=== PATIENT | female | born 1980 | race African-American/Black ===

== ENCOUNTER 2017-05-16 21:14 | Emergency (ER) | payer OTHER ==
[2017-05-16] MEDS ORDERED: ALPRAZolam 0.25 MG TABLET PO ONE (21:20)
[2017-05-16 21:32] VITALS: BP 149/98; PULSE 99; TEMP 97.9; BMI 24.7
[2017-05-16] MEDS ORDERED: ALPRAZolam 0.25 MG TABLET ONE (21:33)
[2017-05-16 21:37] LABS: MCH 23.2 pg (25.7-33.7); MCHC 31.9 g/dl (32.0-36.0); MEAN CELL VOLUME 72.8 fl (80-96); MEAN PLT VOLUME 7.9 fl (7.5-11.1); PLATELET COUNT 303 K/MM3 (134-434); RDW 15.8 % (11.6-15.6); WHITE BLOOD COUNT 8.5 K/mm3 (4.0-10.0)
--- NOTE | 2017-05-16 21:38 | PDOC ---
History of Present Illness - General Stated Complaint: INSOMIA Time Seen by Provider: 05/16/17 21:29 History Source: Patient Exam Limitations: No Limitations - History of Present Illness Initial Comments: 05/16/17 21:59 36 yr female no past medical history presents with 2-3 days of unable to sleep causing anxious feelings. Pt denies any chest pain or shortness of breath. no recent stressfull events. Pt denies suicidal thoughts. 05/18/17 12:53 Past History - Past Medical History Allergies/Adverse Reactions: Allergies Allergy/AdvReac Type Severity Reaction Status Date / Time sulfamethoxazole Allergy Verified 05/16/17 21:32 [From Bactrim] trimethoprim [From Bactrim] Allergy Verified 05/16/17 21:32 Home Medications: Ambulatory Orders Alprazolam [Xanax] 0.25 mg PO Q8H PRN #21 tablet MDD 2MG 05/16/17 Psychiatric Problems: (Anxiety) Other medical history: Migraines, fibroids - Psycho/Social/Smoking Cessation Hx Suicidal Ideation: No Smoking History: Never smoked Information on smoking cessation initiated: No Hx Alcohol Use: No Drug/Substance Use Hx: No Substance Use Type: None Review of Systems - Review of Systems Able to Perform ROS?: Yes Is the patient limited Bahamian proficient: No Constitutional: No: Symptoms Reported HEENTM: No: Symptoms Reported Respiratory: No: Symptoms reported Cardiac (ROS): No: Symptoms Reported ABD/GI: No: Symptoms Reported : No: Symptoms Reported Musculoskeletal: No: Symptoms Reported Integumentary: No: Symptoms Reported Neurological: No: Symptoms reported Psychiatric: Yes: Anxiety, Sleep Pattern Change. No: Depression, Frequent Crying Endocrine: No: Symptoms Reported *Physical Exam - Vital Signs Last Vital Signs Temp Pulse Resp BP Pulse Ox 97.9 F 99 H 20 149/98 100 05/16/17 21:24 05/16/17 21:24 05/16/17 21:24 05/16/17 21:24 05/16/17 21:24 - Physical Exam General Appearance: Yes: Nourished, Appropriately Dressed HEENT: positive: EOMI, JUAN Respiratory/Chest: positive: Lungs Clear, Normal Breath Sounds Cardiovascular: positive: Regular Rhythm, Regular Rate, Tachycardia (mild) Integumentary: positive: Normal Color, Dry, Warm Neurologic: positive: Fully Oriented, Alert, Normal Mood/Affect, Normal Response , Motor Strength 02/11 ED Treatment Course - LABORATORY CBC & Chemistry Diagram: 05/16/17 21:30 05/16/17 21:30 Medical Decision Making - Medical Decision Making 05/16/17 22:16 cc: feeling anxious unable to sleep no cp no sob will give xanax now and re-evaluate pt requesting baseline lab work, will check , TSH, free t3, pt with her boyfriend who is driving her home pt reports feeling better after xanax on discharge labs reviewed with pt on discharge. pt understands the follow up plan of care. all questions asked and answered at discharge. 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
[2017-05-16 22:00] LABS: ALBUMIN 3.9 g/dl (3.4-5.0); ANION GAP 7 (8-16); BILIRUBIN,TOTAL 0.3 mg/dL (0.2-1.0); CALCIUM 9.1 mg/dL (8.5-10.1); CO2 25 mmol/L (21-32); CREATININE 0.8 mg/dL (0.55-1.02); GLUCOSE,RANDOM 100 mg/dL (74-106); SGOT/AST 20 U/L (15-37); SGPT/ALT 32 U/L (12-78); TOT PROT 7.8 g/dl (6.4-8.2)
[2017-05-16 22:09] LABS: ALK PHOS 54 U/L (45-117); THYROID STIMULATING HORMONE 2.55 uIU/ml (0.358-3.74)
== END 2017-05-16 22:19 | disposition home or self-care (01) ==
LOC: JERFT 21:14
DX: F51.01 Primary insomnia (principal); Z88.1 Allergy status to other antibiotic agents; Z88.2 Allergy status to sulfonamides
CPT/HCPCS: 36415; 80053; 84443; 84481; 84703; 85027; 99281-25

== ENCOUNTER 2020-05-07 13:37 | Emergency (ER) | payer OTHER ==
--- NOTE | 2020-05-07 13:44 | TELE ---
HPI Do you have fever,cough or shortness of breath?: No - General Reason For Visit: COVID History Source: Patient Past History - Travel History Traveled outside of the country in the last 30 days: No Close contact w/someone who was outside of country & ill: No - Medical History Allergies/Adverse Reactions: Allergies Allergy/AdvReac Type Severity Reaction Status Date / Time sulfamethoxazole Allergy Verified 05/16/17 21:32 [From Bactrim] trimethoprim [From Bactrim] Allergy Verified 05/16/17 21:32 Home Medications: Ambulatory Orders Alprazolam [Xanax] 0.25 mg PO Q8H PRN #21 tablet MDD 2MG 05/16/17 Triazolam 0.25 mg PO HS PRN #10 tablet MDD 1 06/01/17 Zolpidem Tartrate [Ambien Cr] 12.5 mg PO DAILY #30 tab.mphase MDD 1 07/29/17 Hydrocodone/Ibuprofen [VICOPROFEN 7.5/200 mg [NF MEDICATION]] 1 tab PO TID #5 tablet MDD 3 08/24/17 Hydrocodone/Ibuprofen [VICOPROFEN 7.5/200 mg [NF MEDICATION]] 1 tab PO TID PRN #30 tablet MDD 6 09/09/19 Psychiatric Problems: (Anxiety) - Psycho-Social/Smoking History Smoking History: Never smoked Review of Systems - Review of Systems Able to Perform ROS?: Yes Limited Kinyarwanda proficient: No Constitutional: No: Chills, Fever, Weakness HEENTM: No: Throat Pain Respiratory: No: Cough, Wheezing ABD/GI: No: Diarrhea, Nausea, Vomiting Neurological: No: Headache All Other Systems: Reviewed and Negative *Physical Exam - Physical Exam General Appearance: Yes: Nourished, Appropriately Dressed. No: Apparent Distress HEENT: positive: EOMI, JUAN Neck: positive: Trachea midline Respiratory/Chest: positive: Other (speaking in full sentences). negative: Respiratory Distress - Medical Decision Making 05/07/20 14:21 Pt with no PMH presents to [facility] for a COVID swab. 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 Pt has no symptoms. A/P: need for covid testing COVID order placed Pt swabbed and sent to lab Isolation precautions given. Discharge Diagnosis at time of Disposition: Counseled about COVID-19 virus infection - Referrals - Patient Instructions Discharge Instructions: [facility]-Coronavirus Instructions, [facility] COVID-19 Isolation Protocol
== END 2020-05-07 14:25 | disposition home or self-care (01) ==
LOC: JVIRT 13:37
DX: Z11.59 Encounter for screening for other viral diseases (principal)
CPT/HCPCS: Q3014-GT; U0003

== ENCOUNTER 2021-01-14 12:06 | Emergency (ER) | payer OTHER ==
[2021-01-15 10:09] LABS: SARS-CoV-2 NAA Not Detected (Not Detected)
== END 2021-01-14 12:11 | disposition home or self-care (01) ==
LOC: JVIRT 12:06
DX: Z20.822 Contact with and (suspected) exposure to COVID-19 (principal)
CPT/HCPCS: C9803; G2251-GT; Q3014-GT; U0003; U0005

== ENCOUNTER 2021-09-14 19:21 | Emergency (ER) | payer OTHER ==
[2021-09-15 15:07] LABS: SARS-CoV-2 NAA Not Detected (Not Detected)
== END 2021-09-14 19:27 | disposition home or self-care (01) ==
LOC: JVIRT 19:21
DX: Z11.52 Encounter for screening for COVID-19 (principal)
CPT/HCPCS: C9803; Q3014-GT; U0003; U0005

== ENCOUNTER 2021-10-14 23:03 | Emergency (ER) | payer OTHER | END 2021-10-14 23:14 | disposition home or self-care (01) | LOC: JVIRT 23:03 | DX: Z20.822 Contact with and (suspected) exposure to COVID-19 (principal) | CPT/HCPCS: C9803-CS; Q3014-GT; U0003; U0005 ==